=== PATIENT | female | born 1955 | race Caucasian/White ===

== ENCOUNTER 2024-12-04 10:33 | Emergency (ER) | payer MEDICARE, OTHER, SELFPAY ==
[2024-12-04 10:36] VITALS: BP 153/92; PULSE 69; RESP 20; TEMP 36.4; O2SAT 98
[2024-12-04 10:42] VITALS: BP 153/92; PULSE 69; RESP 20; TEMP 36.4; O2SAT 98
--- NOTE | 2024-12-04 10:44 | ED.GENADUL_ITS ---
Discharge Plan Disposition Patient Disposition: Home Discharge Details Clinical Impression: Back pain Primary Care Provider: Davina Madera ED Provider: Jesus Manuel Cook Home Meds and New Rx's Prescriptions: Continued levothyroxine [Euthyrox] 137 mcg tablet 137 mcg PO DAILY Discharge Instructions Additional Instructions: You were seen in the emergency department for your back pain. Your blood work showed no sign of any damage to your heart. You had no pneumonia and no signs of a collapsed lung. Your blood test was negative for any blood clots. As we discussed please return to the emergency department if you pass out develop chest pain or develop any fevers. Otherwise please follow-up with the primary care provider in the next several weeks. Discharge Data Discharge Date/Time-TO BE ENTERED AT DEPARTURE: 12/04/24 13:01 HPI General Date/Time Provider Initiated Documentation: 12/04/24 10:36 . HPI Narrative: MDM This is an overall very well-appearing normothermic and not tachycardic 69-year-old female with left upper back pain ACS versus PE versus mass for which patient will undergo x-ray D-dimer troponin and monitoring. No pain out of proportion to suggest necrotizing soft tissue infection. No history of ureterolithiasis nor hematuria to suggest ureterallithiasis. No tearing quality to suggest aortic dissection. No new cough nor fevers to suggest pneumonia. Not hypotensive nor dialysis patient making my suspicion low for tamponade. Equal breath sounds and no trauma so doubt pneumothorax. No wheeze no respiratory distress to suggest reactive airway disease. No rash to back to suggest zoster. No vomiting to suggest increased risk for esophageal rupture. Soft nontender abdomen so I am not concerned for appendicitis nor diverticulitis. No midline thoracic spinal tenderness to suggest thoracic spinal fracture. No neurological deficits to suggest spinal cord compression. Low risk for PE so will obtain dimer. Considered CVA however the patient is neurologically intact so I did not feel that she would be a candidate for lytics. ECG showing sinus bradycardia rate of 57. Interventricular conduction delay. QTc and AK within normal limits. Biatrial enlargement. No prior for comparison. 12:43 PM Repeat troponin reassuring. CBC notable for leukocytosis. Reassuring normal renal function. Dimer unremarkable. In the absence of chest pain my suspicion is low for ACS I did not feel the patient required hospitalization for trending of troponins. We discussed at length that she should return to the emergency department if she developed a rash on her back if she develop fevers shortness of breath or if she passed out. I advised her that I did not have a clear sense of what was causing her symptoms. I discussed that she certainly could be early in a more dangerous process and that if she had worsening symptoms or any other concerns that she should return immediately to the emergency department for reassessment. I also spoke with health community living coach Janelle who reports [facility] [place]. I advised PCP follow-up in a week for reassessment. HPI The patient presents for evaluation of left-sided back pain. She reports experiencing left-sided back pain that initially started in the back but has since radiated to the front and downwards. This pain began approximately 3 to 4 days ago, with no prior history of similar symptoms. She has no history of kidney stones or thromboembolic events in her lower extremities or pulmonary system. She does not experience any febrile episodes or respiratory distress. The pain intensifies upon respiration and is alleviated by immobility and shallow breathing. She has not experienced any recent falls. She reports mild nausea, occasional lightheadedness, and dizziness, which she notes is not an unusual symptom for her. She does not report any unintentional weight loss or anterior chest pain. She also does not report any recent physical strain or unusual activities prior to the onset of the pain. She does not have any rashes or mid-back pain. She does not require any analgesics at this time. She has a chronic smoker's cough. She has smoked half a pack of day for most of her adult life with intermittent episodes of quitting. She may have an approximately [id number] history of tobacco use. Exam General: Well-appearing in no acute distress speaking in complete sentences. Head: Normocephalic, atraumatic. Eye: Extraocular eye movements intact. No conjunctival injection. No scleral icterus. Ear, nose, mouth, throat: Grossly normal inspection. Normal voice, handling secretions normally. Neck: Trachea midline. Cardiovascular: Well-perfused distal extremities. Regular rate and rhythm. Respiratory: Nonlabored respiration. Clear lungs bilaterally. Gastrointestinal: Nondistended abdomen. Soft nontender. No rebound. Guarding. Musculoskeletal: No edema. Moving all 4 extremities spontaneously. 5 out of 5 bilateral upper and lower extremity strength. Skin: Normal for age and race, grossly normal temperature and turgor. No acute rash. Neurologic: Alert and appropriate, no apparent acute deficits. Psychiatric: Mood and manner are appropriate. Grooming and personal hygiene are appropriate. Related Data Home Medications ?Medication ?Instructions ?Recorded ?Confirmed levothyroxine 137 mcg tablet 137 mcg PO DAILY 12/04/24 12/04/24 (Euthyrox) Allergies Allergy/AdvReac Type Severity Reaction Status Date / Time Sulfa (Sulfonamide Allergy Intermediate Skin Rash Verified 12/04/24 10:45 Antibiotics) General Stated Complaint: FlankPain GEOVANNA: 3 Course Vital Signs Vital signs: Vital Signs Temperature 36.4 C 12/04/24 10:36 Pulse 69 12/04/24 10:36 Respiratory Rate 20 12/04/24 10:36 Blood Pressure 153/92 H 12/04/24 10:36 Pulse Oximetry 98 12/04/24 10:36 Temperature 36.4 C 12/04/24 10:42 Pulse 69 12/04/24 10:42 Respiratory Rate 20 12/04/24 10:42 Blood Pressure 153/92 H 12/04/24 10:42 Blood Pressure Position Sitting 12/04/24 10:42 Pulse Oximetry 98 12/04/24 10:42 Oxygen Delivery Method Room Air 12/04/24 10:42 Oxygen Flow Rate 0 12/04/24 10:42 Medical Decision Making Quality:SDOH Health Related Social Needs: No Data to Display PFSH All Active Problems (Updated 12/04/24 @ 12:44 by Jesus Manuel Cook MD) Back pain (Acute) Social History Smoking risk assessment performed?: No PAWSS Have you Been Recently Intoxicated or Drunk Within the Last 30 days?: No Have you Ever Experienced Previous Episodes of Alcohol Withdrawal?: No Have you ever Experienced Withdrawal Seizures?: No Have you ever Experienced Delirium Tremens(DT)s?: No Have you ever undergone Alcohol Rehabilitation Treatment (i.e, inpt ot outpatient treatment programs)?: No Have you ever Experienced Blackouts?: No Have you ever Combined Alcohol with other Downers within the last 90 days?: No Have you ever Combined Alcohol with any other Substance of Abuse during the last 90 days?: No Positive Blood Alcohol level on Presentation? [PCS.BAL]: No Evidence of Increased Autonomic Activity (i.e. HR>120, tremor, sweating, agitation, nausea)?: No Result: 0 POCUS Exam (ED) Limited Cardiac Exam DATE OF EXAM: 12/04/24 TIME OF EXAM: 12:52 PROVIDER THAT PERFORMED THE STUDY: Jesus Manuel Cook IS THIS A REPEAT EXAM DURING THIS ENCOUNTER: no REASON FOR EXAM: Chest pain VISUALIZED STRUCTURES: Four Chambers, Left ventricle and LVOT VIEW OBTAINED: Apical 4-Chamber, Parasternal long-axis and Subxiphoid PERTINENT FINDINGS/IMPRESSION: No pericardial effusion and No RV dilation DIFFERENTIAL DIAGNOSES: Aortic outflow track less than 4 cm, good squeeze, RV less than LV, no significant pericardial effusion. Exam complete
--- NOTE | 2024-12-04 11:00 | RT.EKG_ITS ---
APPROVED REPORT Exam: Resting ECG Reason for Exam: Chest pain Patient Location: E HR:57 bpm ECG Measurements Heart Rate 57 AXIS WI 146 P 85 QRSd 118 QRS 69 QT 445 T 67 QTc 432 Conclusion Sinus bradycardia...rate< 60 Nonspecific intraventricular conduction delay...QRSd >115mS, not LBBB/RBBB Lateral infarct, age indeterminate...Q>35mS, T neg, V5-V6 I aVL No Occlusion ME
--- NOTE | 2024-12-04 11:09 | NUR.NOTE ---
Nursing Note: pt c/o increased pain on left side when inhaling. LS clear posteriorly in all frazier
[2024-12-04 11:23] LABS: Abs Immature Grans 0.02 10^3/uL (0.0-0.06); Absolute Basophil Count 0.03 10^3/uL (0.0-0.2); Absolute Eosinophil Count 0.16 10^3/uL (0.0-0.7); Absolute Lymphocyte Count 1.82 10^3/uL (1.2-3.4); Absolute Monocyte Count 0.76 10^3/uL (0.1-0.8); Absolute Neutrophil Count 8.36 10^3/uL (1.2-6.7); Basophils % 0.3 %; Eosinophils % 1.4 %; HCT 43.6 % (36.0-46.0); HGB 14.2 g/dL (11.2-15.7); Immature Grans % 0.2 %; Lymphocytes % 16.3 %; MCH 29.5 pg (27.0-33.0); MCHC 32.6 % (32.0-36.0); MCV 91 fL (80-95); MPV 9.5 fL (8.0-11.0); Monocytes % 6.8 %; Platelet Count 257 10^3/uL (130-400); RBC 4.81 10^6/uL (3.93-5.22); RDW 12.8 % (11.7-14.6); RDW-SD 42.3 fL; WBC 11.15 10^3/uL (4.4-10.8)
--- NOTE | 2024-12-04 11:35 | DI.RAD_ITS ---
Exam(s) XR CHEST 2V PA LATERAL EXAM: XR CHEST 2V PA LATERAL CLINICAL HISTORY: Chest pain. TECHNIQUE: 2D digital imaging was performed. COMPARISON: No exams were available for comparison FINDINGS: 2 views: Heart size is normal. The mediastinum is not widened. Lungs are clear. No infiltrates nor pleural effusions. Mild hyperinflation noted IMPRESSION: No acute pulmonary findings.Hyperinflation evident in the lung frazier. DATA REPOSITORY: RADIATION DOSE DELIVERED:
--- NOTE | 2024-12-04 11:40 | DI.VRAD_ITS ---
PROCEDURE INFORMATION: Exam: XR Chest Exam date and time: 12/04/2024 11:37 AM Age: 69 years old Clinical indication: Pain; Other: Chest TECHNIQUE: Imaging protocol: Radiologic exam of the chest. Views: 2 views. COMPARISON: No relevant prior studies available. FINDINGS: Lungs: Hyperexpanded lung frazier consistent with COPD. No focal consolidation. Pleural spaces: Unremarkable. No pleural effusion. No pneumothorax. Heart/Mediastinum: Unremarkable. No cardiomegaly. Bones/joints: Unremarkable. IMPRESSION: Hyperexpanded lung frazier consistent with COPD. No focal consolidation. Dictated and Authenticated by: Willard Erazo MD. Orderin Joey Ken MD
[2024-12-04 11:47] LABS: ALT 25 U/L (14-59); AST 21 U/L (15-37); Albumin 3.7 g/dL (3.4-5.0); Alkaline Phosphatase 88 U/L (46-116); BUN 14 mg/dL (7-18); Bilirubin, Total 0.8 mg/dL (0.2-1.0); CREATININE 0.7 mg/dL (0.55-1.02); Calcium 10.2 mg/dL (8.5-10.1); Chloride 104 mmol/L (98-107); Estimated GFR 94.15 (mL/min/1.73m2); Glucose 108 mg/dL (74-106); Potassium 3.8 mmol/L (3.5-5.1); Sodium 138 mmol/L (136-145); Total Protein 7.5 g/dL (6.4-8.2); Troponin I 5 ng/L (<or=51)
[2024-12-04 11:53] LABS: D-Dimer 258 ng/mlFEU (<500)
[2024-12-04 12:33] VITALS: BP 165/86; PULSE 57; RESP 16; O2SAT 99
[2024-12-04 12:40] LABS: Troponin I 4 ng/L (<or=51)
== END 2024-12-04 13:01 | disposition home or self-care (01) ==
PROVIDERS: Emergency Provider Emergency Medicine; PCP Nurse Practitioner Family
DX: M54.9 Dorsalgia, unspecified (principal); R11.0 Nausea; R42 Dizziness and giddiness; R03.0 Elevated blood-pressure reading, without diagnosis of hypertension
CPT/HCPCS: 99284 ×2; 36415; 80053; 93005; 93308; 71046; 84484; 85025; 85379; 93010